=== PATIENT | female | born 2005 | race Caucasian/White ===

== ENCOUNTER 2023-12-06 20:56 | Emergency (ER) | payer OTHER ==
[~2023-12-06] VITALS: Ht 162.6 cm; Wt 80.3 kg
[2023-12-06 21:40] VITALS: BP 122/75; PULSE 71; RESP 16; TEMP 98.2; O2SAT 99
[2023-12-06] MEDS ORDERED: IBUPROFEN 600 MG TAB PO ONE (22:25)
[2023-12-06] MEDS ORDERED: IBUP-2213 PO (23:01)
[2023-12-06] MEDS ORDERED: BACI-418 TP (23:01)
[2023-12-06] MEDS ORDERED: BACITRACIN OINT 500 UNITS/GM PKT TP ONE (23:05)
== END 2023-12-06 23:15 | disposition home or self-care (01) ==
LOC: MED 20:56
DX: T23.102A Burn of first degree of left hand, unspecified site, initial encounter (principal); T31.0 Burns involving less than 10% of body surface; X08.8XXA Exposure to other specified smoke, fire and flames, initial encounter; Y93.89 Activity, other specified; Y92.89 Other specified places as the place of occurrence of the external cause; Y99.8 Other external cause status
CPT/HCPCS: 16000; 90471; 90715; 99283